=== PATIENT | female | born 2000 | race Two or more races ===

== ENCOUNTER 2018-06-11 19:36 | Emergency (ER) | payer OTHER ==
[~2018-06-11] VITALS: Ht 162.6 cm; Wt 61.7 kg
[~2018-06-11 19:36] MED LIST: ADVIL200 MG PO; PHENAGIL CH TA1 EACH PO; QVAR7.3 G1 IH; VENTOLIN HFA18 GM IH
== END 2018-06-11 23:01 | disposition home or self-care (01) ==
LOC: ER 19:36
DX: B96.0 Mycoplasma pneumoniae [M. pneumoniae] as the cause of diseases classified elsewhere (principal)

== ENCOUNTER 2018-10-29 00:08 | Emergency (ER) | payer OTHER ==
[~2018-10-29] VITALS: Ht 152.4 cm; Wt 60.8 kg
[2018-10-29] MEDS ORDERED: KETO10TA2 PO (02:39)
== END 2018-10-29 02:44 | disposition home or self-care (01) ==
LOC: ER 00:08
DX: M94.0 Chondrocostal junction syndrome [Tietze] (principal); R07.89 Other chest pain

== ENCOUNTER → 2019-02-21 | Emergency (ER) | payer OTHER ==
[~2019-02-21] VITALS: Ht 165.1 cm; Wt 65.8 kg
[~2019-02-21] MED LIST changes: +ALBUTEROL1.25 MG/3 IH; +BENZONATATE200 M1; +CLARITIN10 MG PO; +FLOVENT HFA10.6 GM; +KETO10TA2 PO; +MEDROLPACK PO; +TUSNEL LIQUID178 ML PO; +TUSSIN15 MG/5 M1; +XOPENEX0.63 MG/3
== END | disposition home or self-care (01) ==
LOC: ER 02:46
DX: J45.998 Other asthma (principal)

== ENCOUNTER 2023-04-12 21:05 | Emergency (ER) | payer OTHER ==
[~2023-04-12] VITALS: Ht 165.1 cm; Wt 74.8 kg
== END 2023-04-13 04:43 | disposition home or self-care (01) ==
LOC: ER 21:06
DX: M62.830 Muscle spasm of back (principal)